=== PATIENT | male | born 1950 | race Caucasian/White ===

== ENCOUNTER 2021-11-28 20:57 | Emergency (ER) | payer MEDICARE, OTHER ==
--- NOTE | 2021-11-28 22:11 | XR ---
EXAMINATION TYPE: XR KUB DATE OF EXAM: 11/28/2021 COMPARISON: NONE HISTORY: Pain TECHNIQUE: 2 views FINDINGS: There is no sign of intestinal obstruction or pneumoperitoneum. Fecal pattern is normal. Lucy ng bases are clear. No pathologic calcification over the kidneys. IMPRESSION: Nonacute abdomen.
[2021-11-28 23:18] VITALS: TEMP 97.9
--- NOTE | 2021-11-29 00:55 | ED ---
Abdominal Pain HPI - General Chief Complaint: Abdominal Pain Stated Complaint: constipation Time Seen by Provider: 11/28/21 23:32 Source: patient Mode of arrival: wheelchair Limitations: no limitations - History of Present Illness Initial Comments: This patient is 71-year-old man with history of ulcerative colitis and colectomy with J-pouch. Patient states that he is having abdominal pain and believes that it's related to not being able to adequately pass stool and gas. Patient states he has history of having anal strictures requiring a digital dilation. He states that he was usually requiring these every one to 2 years, but it has been a number of years since he had one of these performed. Patient is describing having a bloated distended type of discomfort and he has not passed stool in number days. No fever or chills. No vomiting. MD Complaint: abdominal pain -: days(s) Location: diffuse Severity: moderate Quality: fullness Consistency: constant Improves With: nothing Worsens With: nothing Associated Symptoms: constipation - Related Data Allergies Allergy/AdvReac Type Severity Reaction Status Date / Time hay Allergy Unknown Uncoded 11/28/21 23:19 Review of Systems ROS Statement: Those systems with pertinent positive or pertinent negative responses have been documented in the HPI. ROS Other: All systems not noted in ROS Statement are negative. Constitutional: Denies: fever, chills Respiratory: Denies: cough, dyspnea Cardiovascular: Denies: chest pain, palpitations, edema Gastrointestinal: Reports: abdominal pain, constipation. Denies: nausea, vomiting, diarrhea, melena, hematochezia Genitourinary: Denies: dysuria, hematuria Musculoskeletal: Denies: back pain Skin: Denies: rash Neurological: Denies: headache, weakness, numbness Past Medical History Additional Past Medical History / Comment(s): colitis History of Any Multi-Drug Resistant Organisms: Unobtainable Additional Past Surgical History / Comment(s): surgery for coitits Past Psychological History: No Psychological Hx Reported Smoking Status: Unknown if ever smoked Past Alcohol Use History: Unable to Obtain Past Drug Use History: Unable to Obtain General Exam General appearance: alert, in no apparent distress Head exam: Present: atraumatic, normocephalic Eye exam: Present: normal appearance. Absent: scleral icterus, conjunctival i njection Respiratory exam: Present: normal lung sounds bilaterally. Absent: respiratory distress, wheezes, rales, rhonchi, stridor Cardiovascular Exam: Present: regular rate, normal rhythm, normal heart sounds. Absent: bradycardia, tachycardia, systolic murmur, diastolic murmur, rubs, gallop GI/Abdominal exam: Present: soft, hyperactive bowel sounds. Absent: distended, tenderness, guarding, rebound, rigid, mass Rectal exam: Present: other (There is an anal stricture present.) Extremities exam: Present: normal inspection, normal capillary refill. Absent: pedal edema, calf tenderness Back exam: Present: normal inspection. Absent: CVA tenderness (R), CVA tenderness (L) Neurological exam: Present: alert Skin exam: Present: warm, dry, intact, normal color. Absent: rash Course Vital Signs 11/28/21 11/29/21 21:00 01:08 Temperature 97.9 F Pulse Rate 99 89 Respiratory 18 17 Rate Blood Pressure 162/99 160/89 O2 Sat by Pulse 98 Oximetry Medical Decision Making - Medical Decision Making Patient is 71-year-old man here with postsurgical stricture. Discussed with juan manuel mccurdy's risk and benefits of attempting bedside dilation and he does agree. I then performed digital dilation of the patient's anal stricture. He tolerated procedure well with just a few drops of blood. The patient was unable to go into the bathroom and passed a significant amount of stool and gas relieving his abdominal discomfort. Discussed further evaluation with surgeon as well as return parameters Disposition Clinical Impression: Anal stricture Disposition: HOME SELF-CARE Condition: Good Instructions (If sedation given, give patient instructions): Sphincterotomy (ED) Is patient prescribed a controlled substance at d/c from ED?: No Referrals: None,Stated [REFERRING] - 1-2 days Ciro Gilliam MD [Medical Doctor] - 1-2 days
[2021-11-29 01:09] VITALS: BP 160/89; PULSE 89; RESP 17
== END 2021-11-29 01:09 | disposition home or self-care (01) ==
LOC: EC 20:57
DX: K62.4 Stenosis of anus and rectum (principal); Z91.048 Other nonmedicinal substance allergy status
CPT/HCPCS: 74018; 99284